=== PATIENT | female | born 1990 | race Caucasian/White ===

== ENCOUNTER 2017-09-08 13:25 | Emergency (ER) | payer MEDICAID, SELFPAY ==
[2017-09-08 14:13] VITALS: BP 135/69; PULSE 105; RESP 18; TEMP 36.4; O2SAT 96; BMI 27.4
[2017-09-08 14:18] LABS: UTC Influenza A Antigen Negative (Negative); UTC Influenza B Antigen Negative (Negative)
--- NOTE | 2017-09-08 14:58 | HMH.EDUTC ---
[facility] [place] Disposition Clinical Impression: Cough Disposition: Home, Self-Care Condition on Discharge: Good Additional Instructions: * Monitor Temp. Tylenol and/or Ibuprofen as needed. ER if fever is no less than 101 despite alternating Tylenol and Ibuprofen * Encourage fluids, water, Gatorade, powerade, pedialyte if /toddler/or child * Warm salt water gargles for throat irritation *Warm fluids *Sore throat lozenges *Sleep elevated *humidifier or vaporizer Lots of rest Increase fluids, water, Gatorade, powerade *Bromfed may cause drowsiness. Know how it effect you or your child. Before driving, caring for small children or sending your child to school *Your throat swab was sent to lab for culture. Those results area typically sent to your primary care physician. Be sure to follow up in 2-3 days if no improvement so they can review those results and treat if necessary If you dont have primary care I recommend you get one, but in the mean time you will have to return to a walk in clinic Follow up IMMEDIATELY for new or worsening of symptoms OR no noticeable improvement over the next 48-72 hours. 911 immediately for any life threatening symptoms such as chest pain or difficulty breathing Prescriptions: Brompheniramine/Pseudoephed/Dm [Bromfed DM Cough Syrup 5mL] 10 ml PO Q4H PRN #200 syrup PRN Reason: Cough Referrals: Provider,Referral, [Primary Care Provider] - Time of Disposition: 15:02 Medical Decision Making Vital Signs: 09/08/17 14:13 Temperature 97.6 F Temperature Source Temporal Artery Scan Pulse Rate [Right] 105 H Respiratory Rate 18 Blood Pressure [Right Arm] 135/69 Blood Pressure Mean [Right Arm] 91 Blood Pressure Source [Right Arm] Automatic Cuff Blood Pressure Position [Right Arm] Sitting 02 Sat by Pulse Oximetry 96 Oxygen Delivery Method Room Air - Lab Data Lab Results 09/08/17 14:13: Influenza Type A Ag Negative, Influenza Type B Ag Negative - Lamont Inquiry Pt receiving controlled substance: No Lamont was queried for this patient: No [facility] [place] HPI - General Stated complaint: cough Mode of Arrival: Ambulatory Source of Information: Patient Limitations: No Limitations Description of Symptoms (Recalled from Triage Doc. by RN): COUGH, CONGESTION, DIARRHEA HEENT Symptoms (Recalled from RN notes): Yes Resp Symptoms (Recalled from RN notes): No Skin Symptoms (Recalled from RN notes): No MS Symptoms (Recalled from RN notes): No Functional Status (Recalled from RN notes): N - History of Present Illness Provider Complaint: State that she was recently exposed to someone with the flu and she was worried that she may have caught it State that she has a small baby at home and wanted to make sure she was ok - Related Data Previous Rx's Medication Instructions Recorded Brompheniramine/Pseudoephed/Dm 10 ml PO Q4H PRN #200 syrup 09/08/17 [Bromfed DM Cough Syrup 5mL] Allergies Allergy/AdvReac Type Severity Reaction Status Date / Time No Known Drug Allergies Allergy Unknown Verified 09/08/17 14:17 - Worker's Comp Is this a Worker's Comp case?: No [facility] History I have reviewed the patient's past medical history: Yes - *Social History Smoking Status: Current every day smoker Tobacco Type: cigarettes Alcohol Intake: never - Psychiatric History Expresses thoughts of harming self/others: None Suicide Plan Description: No Plan ROS Obtained: Yes All systems reviewed & no additional complaints Physical Exam - General General appearance: alert, in no apparent distress - ENT ENT exam: Present: normal exam, normal oropharynx, mucous membranes moist, TM's normal bilaterally, normal external ear exam - Respiratory Respiratory exam: Present: normal lung sounds bilaterally. Absent: respiratory distress - Cardiovascular Cardiovascular exam: Present: regular rate, normal rhythm. Absent: JVD - Neurological Exam Neurological exam: Present: alert, oriented X3
--- NOTE | 2017-09-08 15:02 | ED_ITS ---
[facility] [place] Clinical Impression: Cough Disposition: Home, Self-Care Condition on Discharge: Good Additional Instructions: * Monitor Temp. Tylenol and/or Ibuprofen as needed. ER if fever is no less than 101 despite alternating Tylenol and Ibuprofen * Encourage fluids, water, Gatorade, powerade, pedialyte if /toddler/or child * Warm salt water gargles for throat irritation *Warm fluids *Sore throat lozenges *Sleep elevated *humidifier or vaporizer Lots of rest Increase fluids, water, Gatorade, powerade *Bromfed may cause drowsiness. Know how it effect you or your child. Before driving, caring for small children or sending your child to school *Your throat swab was sent to lab for culture. Those results area typically sent to your primary care physician. Be sure to follow up in 2-3 days if no improvement so they can review those results and treat if necessary If you don? t have primary care I recommend you get one, but in the mean time you will have to return to a walk in clinic Follow up IMMEDIATELY for new or worsening of symptoms OR no noticeable improvement over the next 48-72 hours. 911 immediately for any life threatening symptoms such as chest pain or difficulty breathing Prescriptions: Brompheniramine/Pseudoephed/Dm [Bromfed DM Cough Syrup 5mL] 10 ml PO Q4H PRN # 200 syrup PRN Reason: Cough Referrals: Provider,Referral, [Primary Care Provider] - Time of Disposition: 15:02 Medical Decision Making Vital Signs: 09/08/17 14:13 Temperature 97.6 F Temperature Source Temporal Artery Scan Pulse Rate [Right] 105 H Respiratory Rate 18 Blood Pressure [Right Arm] 135/69 Blood Pressure Mean [Right Arm] 91 Blood Pressure Source [Right Arm] Automatic Cuff Blood Pressure Position [Right Arm] Sitting 02 Sat by Pulse Oximetry 96 Oxygen Delivery Method Room Air - Lab Data Lab Results 09/08/17 14:13: Influenza Type A Ag Negative, Influenza Type B Ag Negative - Lamont Inquiry Pt receiving controlled substance: No Lamont was queried for this patient: No [facility] [place] - General Stated complaint: cough Mode of Arrival: Ambulatory Source of Information: Patient Limitations: No Limitations Description of Symptoms (Recalled from Triage Doc. by RN): COUGH, CONGESTION, DIARRHEA HEENT Symptoms (Recalled from RN notes): Yes Resp Symptoms (Recalled from RN notes): No Skin Symptoms (Recalled from RN notes): No MS Symptoms (Recalled from RN notes): No Functional Status (Recalled from RN notes): N - History of Present Illness Provider Complaint: State that she was recently exposed to someone with the flu and she was worried that she may have caught it State that she has a small baby at home and wanted to make sure she was ok - Related Data Previous Rx's Medication Instructions Recorded Brompheniramine/Pseudoephed/Dm 10 ml PO Q4H PRN #200 syrup 09/08/17 [Bromfed DM Cough Syrup 5mL] Allergies Allergy/AdvReac Type Severity Reaction Status Date / Time No Known Drug Allergies Allergy Unknown Verified 09/08/17 14:17 - Worker's Comp Is this a Worker's Comp case?: No [facility] History I have reviewed the patient's past medical history: Yes - *Social History Smoking Status: Current every day smoker Tobacco Type: cigarettes Alcohol Intake: never - Psychiatric History Expresses thoughts of harming s
== END 2017-09-08 15:03 | disposition home or self-care (01) ==
PROVIDERS: Emergency Provider Nurse Practitioner; Family Provider Emergency Medicine
DX: R05 Cough (principal); Z20.828 Contact with and (suspected) exposure to other viral communicable diseases
CPT/HCPCS: 87804; 99201

== ENCOUNTER → 2017-10-12 11:37 | Outpatient (REF) | payer MEDICAID, SELFPAY ==
[2017-10-12 13:38] LABS: Basophils % 0.3 % (0.1-2.0); Eosinophils # 0.1 K/mm3 (0.0-0.4); Eosinophils % 0.9 % (0.1-12.0); Hematocrit 39.9 % (37.0-47.0); Lymphocytes # 1.2 K/mm3 (0.7-4.5); Lymphocytes % 9.2 K/mm3 (10-50); Mean Corpuscular HGB Conc 32.6 g/dL (31.8-35.4); Mean Corpuscular Volume 88.7 fl (81-99); Monocytes # 0.6 K/mm3 (0.1-1.0); Monocytes % 4.5 % (1.7-9.3); Neutrophils # 11.4 K/mm3 (1.8-7.8); Neutrophils % 85.2 % (37.0-80.0); Platelet Count 281 K/mm3 (142-424); Red Cell Distribution Width 13.5 % (11.5-17.5); White Blood Count 13.4 K/mm3 (4.8-10.8)
[2017-10-12 13:44] LABS: MANUAL DIFFERENTIAL MANUAL DIFFERENTIAL (MANUAL DIFF)
[2017-10-12 14:06] LABS: Alanine Aminotransferase 17 U/L (12-78); Albumin Level 3.2 gm/dL (3.4-5.0); Albumin/Globulin Ratio 0.8 (1.1-1.8); Alkaline Phosphatase 54 U/L (46-116); Anion Gap 11.9 mEq/L (5-15); Aspartate Amino Transferase 6 U/L (15-37); Bilirubin,Total 0.5 mg/dL (0.2-1.0); Blood Urea Nitrogen 9 mg/dL (7-18); Calcium 9.1 mg/dL (8.5-10.1); Carbon Dioxide 27 mmol/L (21.0-32.0); Chloride 101 mmol/L (98-107); Creatinine,Serum 0.94 mg/dL (0.55-1.02); Estimated Glomerular Filt Rate 71 ml/min (>60); GFR (African American) 86 ML/MIN (>60); Globulin 4.1 gm/dl (1.3-3.2); Glucose 107 mg/dL (74-106); Potassium 3.9 mmoL/L (3.5-5.1); Sodium 136 mmol/L (136-145); Total Protein,Serum 7.3 gm/dL (6.4-8.2)
[2017-10-12 14:51] LABS: Hemoglobin A1C 5.2 % (0.0-7.0)
[2017-10-12 15:16] LABS: Lymphocytes % 12 % (10-50); Monocytes % 6 % (2-9); Neutrophils % 82 % (42-76); Total Cells Counted 100
[2017-10-12 15:17] LABS: Platelet Estimate Normal; RBC Morphology Normal
== END ==
LOC: LAB 11:37
PROVIDERS: Visit Provider Nurse Practitioner Family
DX: R39.198 Other difficulties with micturition (principal); R53.83 Other fatigue
CPT/HCPCS: 80053; 83036; 85007; 85025; 87086; 87088; 87186

== ENCOUNTER → 2018-08-03 13:35 | Outpatient (CLI) | payer MEDICAID, SELFPAY | PROVIDERS: Visit Provider Nurse Practitioner Family | DX: N28.9 Disorder of kidney and ureter, unspecified (principal) | CPT/HCPCS: 87086; 87088; 87186 ==

== ENCOUNTER → 2018-08-05 13:43 | Outpatient (CLI) | payer MEDICAID, SELFPAY ==
--- NOTE | 2018-08-05 13:46 | US_ITS ---
US kidney retroperitoneal comp HISTORY: Left flank pain ITS.REASON: Kidney pain ORDERING PHYSICIAN: Timothy Leroy PATIENT AGE: 27 years Comparison: None FINDINGS: RIGHT KIDNEY:Unremarkable. Normal size and echogenicity. No hydronephrosis Right kidney is 11 x 4 x 7 cm LEFT KIDNEY:Unremarkable. No hydronephrosis. Normal size and echogenicity. Left kidney is 10 x 4 x 5 cm OTHER FINDINGS: No other pertinent findings IMPRESSION: Negative bilateral renal ultrasound
== END ==
PROVIDERS: PCP Emergency Medicine; Visit Provider Nurse Practitioner Family
DX: N23 Unspecified renal colic (principal)
CPT/HCPCS: 76770

== ENCOUNTER → 2018-09-24 12:40 | Outpatient (CLI) | payer MEDICAID, SELFPAY ==
[2018-09-24 13:02] LABS: Basophils % 0.4 % (0.1-2.0); Eosinophils # 0.2 K/mm3 (0.0-0.4); Eosinophils % 1.8 % (0.1-12.0); Hematocrit 45.5 % (37.0-47.0); Hemoglobin 14.8 g/dL (12.2-16.2); Lymphocytes # 2.2 K/mm3 (0.7-4.5); Lymphocytes % 24.4 % (10-50); Mean Corpuscular HGB Conc 32.4 g/dL (31.8-35.4); Mean Corpuscular Hemoglobin 30.5 pg (27.0-31.2); Mean Corpuscular Volume 94.1 fl (81-99); Mean Platelet Volume 7.4 fl (7.4-10.4); Monocytes # 0.3 K/mm3 (0.1-1.0); Monocytes % 2.8 % (1.7-9.3); Neutrophils # 6.4 K/mm3 (1.8-7.8); Neutrophils % 70.5 % (37.0-80.0); Platelet Count 320 K/mm3 (142-424); Red Blood Count 4.84 M/mm3 (4.20-5.40); Red Cell Distribution Width 12.9 % (11.5-17.5); White Blood Count 9.1 K/mm3 (4.8-10.8)
[2018-09-25 08:22] LABS: Rapid Plasma Reagin Ab Titer Non Reactive (NonRea<1:1)
[2018-09-26 17:17] LABS: HIV Screen 4th Generation wRfx Non Reactive (Non Reactive); Hepatitis B Surface Antigen Negative (Negative); Hepatitis C Antibody <0.1 s/co ratio (0.0-0.9); Rubella Antibodies, IgG 2.26 index (Immune >0.99)
== END ==
PROVIDERS: PCP Emergency Medicine; Visit Provider Nurse Practitioner Obstetrics & Gynecology
DX: Z34.90 Encounter for supervision of normal pregnancy, unspecified, unspecified trimester (principal)
CPT/HCPCS: 36415; 85025; 86592; 86703; 86762; 86850; 87340; 87380; G0432

== ENCOUNTER → 2018-09-28 14:12 | Outpatient (CLI) | payer MEDICAID, SELFPAY ==
--- NOTE | 2018-09-28 14:13 | US_ITS ---
US OB transvaginal HISTORY: ITS.REASON: US OB Dates ORDERING PHYSICIAN: Elkin Chance MD PATIENT AGE: 27 years COMPARISON: None FINDINGS: Transvaginal images are performed. The uterus measures 9 x 5 x 6 cm No intrauterine gestational sac is apparent. Endometrium measures approximately 12 mm. The left ovary is 3.3 x 2 cm. The right ovary is 2.7 x 1.8 cm and contains small follicles with a small cyst measuring up to 14 x 8 mm. There is a small amount fluid in the cul-de-sac. IMPRESSION: 1. No intrauterine gestational sac apparent. Suggest correlation with quantitative beta hCG and follow up ultrasound if beta hCG is positive. 2. Small amount fluid in the cul-de-sac.
[2018-09-28 19:11] LABS: HCG,Quantitative 147 mIU/mL
== END ==
PROVIDERS: PCP Emergency Medicine; Visit Provider Nurse Practitioner Obstetrics & Gynecology
DX: O26.841 Uterine size-date discrepancy, first trimester (principal); Z34.90 Encounter for supervision of normal pregnancy, unspecified, unspecified trimester
CPT/HCPCS: 36415; 76817; 84702

== ENCOUNTER → 2018-09-30 07:28 | Outpatient (CLI) | payer MEDICAID, SELFPAY ==
[2018-09-30 09:04] LABS: HCG,Quantitative 360 mIU/mL
== END ==
PROVIDERS: Visit Provider Nurse Practitioner Obstetrics & Gynecology
DX: Z34.90 Encounter for supervision of normal pregnancy, unspecified, unspecified trimester (principal)
CPT/HCPCS: 36415; 84702

== ENCOUNTER → 2018-10-15 14:46 | Outpatient (CLI) | payer MEDICAID, SELFPAY ==
[2018-10-21 09:45] LABS: Buprenorphine, Urine Positive (Cutoff=10)
== END ==
PROVIDERS: Visit Provider Nurse Practitioner Obstetrics & Gynecology
DX: Z34.90 Encounter for supervision of normal pregnancy, unspecified, unspecified trimester (principal); N39.0 Urinary tract infection, site not specified
CPT/HCPCS: 80307; 87086; 87088; 87186

== ENCOUNTER → 2019-01-25 12:51 | Outpatient (CLI) | payer MEDICAID, SELFPAY ==
--- NOTE | 2019-01-25 13:21 | US_ITS ---
US OB /maternal detail: INDICATION: ITS.REASON: US OB Complete ORDERING PHYSICIAN: Elkin Chance MD PATIENT AGE: 28 years TECHNIQUE: ultrasound transabdominal scanning. COMPARISON: No previous relevant studies. FINDINGS: Single viable intrauterine gestation. Cephalic presentation. Placenta: Posterior High, GR 1. There is average amount fluid. The cervix appears satisfactory. Closed and measuring 4 cm in length. Complete survey performed and was unremarkable on the submitted images as in PACS. No discrete anomalies identified on survey imaging by technologist. Active fetus. Three-vessel cord with satisfactory umbilical cord insertion. 4- chamber heart noted. Survey of brain & ventricles unremarkable. Face and neck survey unremarkable. Diaphragm and chest views unremarkable. Abdomen: Both kidneys noted and unremarkable. Stomach noted and satisfactory. Spine: Survey of the spine satisfactory with no anomalies identified nor imaged. Both arms and legs noted. Amniotic Fluid: Adequate. Maternal adnexa: No significant findings. Measurements: Average ultrasound age 21w4d Gestational Age 20w5d Estimated due date by ultrasound age 1006/03/3029 Estimated weight 440Grams. BPD = 21w3d OFD = 22w0d HC = 21w0d AC = 22w0d FL = 21w4d Growth Percentile= 90 Heart Rate = 158 Cerebellum = 21w4d Humerus = 21w1d HC/AC is 1.09 (1.09-1.26) CI is 76% (70-86%) FL/BPD is 72% FL/AC is 21% IMPRESSION: There is a single live fetus which is in cephalic presentation. Average ultrasound age is 21 weeks and 4 days. All parameters correlate. The fetus is active. No obvious anomalies evident. Please see above for detailed
== END ==
PROVIDERS: PCP Emergency Medicine; Visit Provider Nurse Practitioner Obstetrics & Gynecology
DX: Z36.0 Encounter for antenatal screening for chromosomal anomalies (principal)
CPT/HCPCS: 76811

== ENCOUNTER → 2019-03-28 07:40 | Outpatient (CLI) | payer MEDICAID, SELFPAY ==
[2019-03-28 08:13] LABS: Glucose,Fasting 87 mg/dL (60-105)
== END ==
PROVIDERS: Visit Provider Nurse Practitioner Obstetrics & Gynecology
DX: Z34.90 Encounter for supervision of normal pregnancy, unspecified, unspecified trimester (principal)
CPT/HCPCS: 36415; 82951

== ENCOUNTER → 2019-04-12 09:12 | Outpatient (CLI) | payer MEDICAID, SELFPAY ==
[2019-04-12 10:18] LABS: Glucose,Fasting 79 mg/dL (60-105)
[2019-04-12 11:03] LABS: Glucose 1 Hour 128 mg/dL (74-106)
== END ==
PROVIDERS: Visit Provider Nurse Practitioner Obstetrics & Gynecology
DX: Z34.90 Encounter for supervision of normal pregnancy, unspecified, unspecified trimester (principal)
CPT/HCPCS: 36415; 82951

== ENCOUNTER → 2019-05-11 16:53 | Outpatient (CLI) | payer MEDICAID, SELFPAY | PROVIDERS: Visit Provider Nurse Practitioner Obstetrics & Gynecology | DX: Z34.90 Encounter for supervision of normal pregnancy, unspecified, unspecified trimester (principal) | CPT/HCPCS: 86403 ==

== ENCOUNTER 2019-05-29 15:18 | Outpatient (CLI) | payer MEDICAID, SELFPAY ==
[2019-05-29 15:31] VITALS: BMI 30.2
[2019-05-29 15:39] LABS: Microscopic, Urine URINE MICROSCOPIC (MICROSCOPIC)
[2019-05-29 15:40] VITALS: BP 125/66; PULSE 119; RESP 20; TEMP 36.8; O2SAT 97; BMI 30.2
[2019-05-29 15:41] LABS: Appearance,Urine CLEAR (Clear); Bilirubin,Urine Negative (Negative); Blood, Urine Negative (Negative); Color,Urine YELLOW (Yellow); Glucose,Urine (UA) Negative (Negative); Ketones,Urine TRACE (Negative); Leukocyte Esterase,Urine Negative (Negative); Nitrate,Urine Negative (Negative); Protein,Urine TRACE (Negative); Urobilinogen,Urine 0.2 EU/dl (0.2)
[2019-05-29 15:49] LABS: Amphetamine/Metha Screen,Urine Negative ng/mL (<1000); Barbiturates Screen,Urine Negative ng/mL (<200); Benzodiazepines Screen,Urine Negative ng/mL (<200); Cannabinoid Screen,Urine Negative ng/mL (<50); Cocaine Screen,Urine Negative ng/mL (<300); Methadone Screen,Urine Negative ng/mL (<300); Opiate Screen,Urine Negative ng/mL (<300); Phencyclidine Screen,Urine Negative ng/mL (<25)
[2019-05-29 16:05] LABS: Bacteria,Urine Trace /lpf; Squamous Epithelial Cell,Urine Occasional #/hpf (0-5)
== END 2019-05-29 16:17 | disposition home or self-care (01) ==
LOC: OBOUT 15:19 → OB 15:20
PROVIDERS: PCP Emergency Medicine; Visit Provider Obstetrics & Gynecology
DX: O60.03 Preterm labor without delivery, third trimester (principal); Z3A.38 38 weeks gestation of pregnancy
CPT/HCPCS: 59025; 80305; 81001

== ENCOUNTER 2019-06-03 05:39 | Inpatient (IN) ==
[2019-06-03 06:14] LABS: Microscopic, Urine URINE MICROSCOPIC (MICROSCOPIC)
[2019-06-03 06:16] LABS: Basophils % 0.2 % (0.1-2.0); Eosinophils # 0.2 K/mm3 (0.0-0.4); Eosinophils % 1.3 % (0.1-12.0); Hematocrit 34.2 % (37.0-47.0); Hemoglobin 10.9 g/dL (12.2-16.2); Lymphocytes # 3.4 K/mm3 (0.7-4.5); Lymphocytes % 18.8 % (10-50); Mean Corpuscular HGB Conc 31.8 g/dL (31.8-35.4); Mean Corpuscular Volume 92.4 fl (81-99); Mean Platelet Volume 8.5 fl (7.4-10.4); Monocytes # 0.8 K/mm3 (0.1-1.0); Monocytes % 4.5 % (1.7-9.3); Neutrophils # 13.5 K/mm3 (1.8-7.8); Neutrophils % 75.1 % (37.0-80.0); Platelet Count 454 K/mm3 (142-424); Red Cell Distribution Width 13.6 % (11.5-17.5); White Blood Count 17.9 K/mm3 (4.8-10.8)
[2019-06-03 06:16] LABS: Appearance,Urine SL CLOUDY (Clear); Bilirubin,Urine Negative (Negative); Blood, Urine Negative (Negative); Color,Urine YELLOW (Yellow); Glucose,Urine (UA) Negative (Negative); Ketones,Urine Negative (Negative); Leukocyte Esterase,Urine Negative (Negative); Protein,Urine Negative (Negative); Specific Gravity, Urine 1.015 (1.005-1.030); Urobilinogen,Urine 0.2 EU/dl (0.2)
[2019-06-03 06:23] LABS: Anion Gap 15.9 mEq/L (5-15); Calcium 10.5 mg/dL (8.5-10.1)
[2019-06-03 06:24] LABS: Amorphous Sediment,Urine 1+ /lpf; Bacteria,Urine Trace /lpf; WBC,Urine Occasional #/hpf (0-3)
[2019-06-03 06:39] LABS: Amphetamine/Metha Screen,Urine Negative ng/mL (<1000); Barbiturates Screen,Urine Negative ng/mL (<200); Benzodiazepines Screen,Urine Negative ng/mL (<200); Cannabinoid Screen,Urine Negative ng/mL (<50); Cocaine Screen,Urine Negative ng/mL (<300); Methadone Screen,Urine Negative ng/mL (<300); Opiate Screen,Urine Negative ng/mL (<300); Phencyclidine Screen,Urine Negative ng/mL (<25)
--- NOTE | 2019-06-03 07:09 | Progress Note ---
[facility] Anesthesia Checklist - Structural Data Admitted From: Inpatient Planned Operative Procedure/s: c/section Consent for Planned Operative Procedure(s) Verified: Yes - Airway Assessment C-Spine Mobility Assessed: Yes TMJ Mobility Assessed: Yes Dentition: Good Dentition - Neurological Assessment Level of Consciousness: Awake, Alert, Appropriate - Anesthesia Plan Anesthesia Risk discussed: Yes Anesthesia Plan: Verified ASA Class: II Anesthesia Type: Spinal [facility] History I have reviewed the patient's past medical history: Yes Medical History: Denies:: Cancer, Diabetes Mellitus Type 1, Diabetes Mellitus Type 2, MRSA *Have you ever received a pneumonia vaccine?: No *Have you received a flu vaccine this season?: No Other Medical History: Reports: Other Anesthesia experience/problems:: none Laterality Cases: Other Surgeries: Yes: Appendectomy, Cholecystectomy, , Other Amputation: No Fractures: No - *Social History Smoking Status: Current every day smoker Tobacco Type: cigarettes # Packs/Day (cigarettes): 1 #Yrs smoked (if former smoker): 15 Alcohol Intake: never Alcohol Intake Frequency:: holidays/special occasions only Substance Use Type: marijuana, crack/cocaine, other *Occupational Status:: unemployed *Travel in the last 8 weeks: None Family Hx:: No significant family history Para: 4
[2019-06-03 07:14] LABS: Eosinophils % 1 % (0-3); Lymphocytes % 17 % (10-50); Monocytes % 4 % (2-9); Neutrophils % 78 % (42-76); Total Cells Counted 100
[2019-06-03 07:15] LABS: RBC Morphology Normal
--- NOTE | 2019-06-03 08:26 | Operative Note ---
Date of procedure: 06/03/19 Pre-op Diagnosis:: Term , previous section Post-op Diagnosis:: Term , previous section Procedure performed:: Repeat lower segment transverse section Surgeon:: Elkin Chance MD Manager Retention(s):: Katy Varghese Anesthesia: spinal Estimated blood loss (mL): 600 Clinical Note:: She is a 28-year-old 5 now para 5 who was 39+1 weeks gestational age. She has had 4 previous sections and as a result of that was offered repeat lower segment transverse section at term. The risks and benefits of surgery were discussed with the patient prior to surgery. Operative findings:: She delivered a liveborn female child at 7:49 AM on June 03, 2019. The baby had Apgars of 8 at 1 minute and 8 at 5 minutes. pH was 7.41. Ovaries and tubes appeared normal. Operative note:: She was taken to the operating room where spinal anesthesia was found be adequate. She was prepped and draped in normal sterile fashion in the supine position with a leftward tilt. A Vega catheter was in the bladder. A Pfannenstiel skin incision was made with knife then carried through to the underlying layer of fascia with cautery. The fascia was opened in the midline with cautery and extended laterally using Valdes scissors. Hood clamps were applied to the superior aspect of the fascial incision which was tented up and the underlying rectus muscles dissected off using cautery. The Hood clamps were then applied to the inferior aspect of the fascial incision which in a similar fashion was tented up and the underlying rectus muscles dissected off using cautery. The rectus muscles were then in the midline, the peritoneum identified, and entered sharply with Metzenbaum scissors. This incision was then extended superiorly and inferiorly with cautery. We had good visualization of the bladder inferiorly. The bladder peritoneum was then opened in the midline and extended laterally using Metzenbaum scissors. A bladder flap was created digitally. The Transverse incision was made through the uterine muscle to the amnion. This incision was then extended laterally using fingers traction. The amnion was entered sharply with knife. There was clear amniotic fluid. The infant's head was then delivered atraumatically. A loose nuchal cord was then reduced. This was followed by the anterior shoulder and the rest of the infant's body atraumatically. The oropharynx and nasopharynx were bulb suctioned. The infant was then handed off to Dr. Garcia who assigned Apgars of 9 at 1 minute and 9 at 5 minutes. We then obtained cord blood as well as cord pH. The pH was 7.35. Using gentle traction on the cord and countertraction on the fundus I was able to easily deliver the placenta intact. It had a normal three-vessel cord. The uterus was then cleared of clots and debris . Uterus was then exteriorized from the abdominal cavity. The uterine incision was then closed using running 0 Vicryl suture in a locked fashion. A second layer of the same suture was used to imbricate the first layer. The bladder peritoneum was then closed using running 2-0 Vicryl suture in a locked fashion. The gutters and cul-de-sac were then cleared of clots and debris . Once again hemostasis was assured. I elected to place a piece of Surgicel along the uterine incision. The uterus was returned to the abdominal cavity. The peritoneum was grasped with Catie clamps and closed using running 2-0 Vicryl suture. The rectus muscles were then reapproximated using running 0 Vicryl suture. The fascia was closed using running #1 Vicryl suture. The subcutaneous tissues were then irrigated with warm water followed by closure Kedar's fascia using running 2-0 Monocryl suture. The skin was closed with sadie. I then cleaned the skin with Hibiclens. Sterile dressings were applied. She tolerated the procedure well and was taken to the recovery room in excellent condition. All sponges minute and needle counts were correct. Estimate a blood loss was approximately 600 mL. Condition: stable Disposition: PACU Specimens:: None Complications:: None
--- NOTE | 2019-06-03 08:42 | Progress Note ---
[facility] Anesthesia Record Part II Discharge Time: 09:00 Destination: Obstetric PACU nurse assessment reviewed?: Yes Patient Condition:: Good Anesthesia Complications:: None Swallowing reflex intact?: Yes Cyanosis?: No
--- NOTE | 2019-06-03 08:42 | Progress Note ---
[facility] Anesthesia Record Part I Intake, IV Amount: 1,500 Estimated blood loss (mL): 600 Urine output (mL): 300 Blood Pressure: 136/76 SaO2: 95 Pulse Rate: 97 Respiratory Rate: 12 Temperature: 97.1 F Patient is:: Awake, Stable Stable to PACU at:: 08:30
[2019-06-04 06:03] LABS: Hematocrit 28.4 % (37.0-47.0); Hemoglobin 8.6 g/dL (12.2-16.2)
--- NOTE | 2019-06-04 11:14 | Progress Note ---
Internal Medicine - PN: Subj *Date: 06/04/19 *Time: 11:12 Interval history: She is doing well this morning. Her pain is improved. She is bottlefeeding. Her lochia is normal. Exam Vital signs and Labs for Last 24 Hours: Temp Pulse Resp BP Pulse Ox 97.6 F 78 17 107/67 L 99 06/04/19 07:57 06/04/19 07:57 06/04/19 07:57 06/04/19 07:57 06/04/19 07:57 Laboratory Results - last 24 hr 06/04/19 05:50: Hgb 8.6 L D, Hct 28.4 L I & O for Last 24 hours: Intake & Output 06/01/19 06/02/19 06/03/19 06/04/19 11:59 11:59 11:59 11:59 Intake Total 1500 / 1500 Output Total 1200 / 1200 Balance 1500 / 1500 -1200 / -1200 Weight 170 lb - Constitutional no acute distress Assessment and Plan (1) Previous section Current visit: Yes Status: Acute Category: Surgical Code(s): Z98.891 - History of uterine scar from previous surgery (2) Delivery by section of full-term Current visit: Yes Status: Acute Category: Medical Code(s): O82 - Encounter for delivery without indication - Assessment and plan all Dx Assessment and Plan for all problems:: She is doing well. We will plan to send her home in 48 hours.
--- NOTE | 2019-06-05 14:39 | Progress Note ---
Internal Medicine - PN: Subj *Date: 06/05/19 *Time: 14:38 Interval history: She is doing well. Will see her back again in the morning and then send her home. Her pain is reasonably well controlled. Exam Vital signs and Labs for Last 24 Hours: Temp Pulse Resp BP Pulse Ox 98.2 F 89 20 128/68 100 06/04/19 20:45 06/04/19 20:45 06/05/19 07:31 06/05/19 07:31 06/04/19 20:45 Laboratory Results - last 24 hr 06/03/19 07:59: Cord ABG pH 7.41 I & O for Last 24 hours: Intake & Output 06/03/19 06/04/19 06/05/19 06/06/19 11:59 11:59 11:59 11:59 Intake Total 1500 / 1500 Output Total 1200 / 1200 Balance 1500 / 1500 -1200 / -1200 Weight 170 lb - Constitutional no acute distress Assessment and Plan (1) Previous section Current visit: Yes Status: Acute Category: Surgical Code(s): Z98.891 - History of uterine scar from previous surgery (2) Delivery by section of full-term Current visit: Yes Status: Acute Category: Medical Code(s): O82 - Encounter for delivery without indication - Assessment and plan all Dx Assessment and Plan for all problems:: She is doing well this morning. She is bottlefeeding. We will plan to send her home tomorrow.
[2019-06-06 08:24] VITALS: BP 124/75
--- NOTE | 2019-06-06 09:47 | Discharge Summary ---
General - General Admission date:: 06/03/19 Discharge date: 06/06/19 HPI HPI: She is a 28-year-old 5 now para 5 who is 39 weeks gestational age. She has had 4 previous sections and as a result of that was offered repeat lower segment transverse section at term. Hospital Course Hospital Course: On June 03, 2019 she underwent a repeat lower segment transverse section and delivered a liveborn female child. The baby weighed 8 pounds 5 ounces and was 19-1/2 inches long. She had Apgars of 8 at 1 minute and 8 at 5 minutes. She has done well post operatively and has remained afebrile throughout her hospitalization. She is eating and drinking and ambulating. She is bottlefeeding. Her lochia is normal. She has a positive blood, she is rubella immune and was group B strep to coccus negative. She is discharged home to follow-up with me in approximately 2 weeks time. She will continue with her vitamins and iron. She was given a prescription for Percocet/5/325, number 30 tablets. Rhogam Administration: Not Indicated Objective Vital signs: Temp Pulse Resp BP Pulse Ox 98.2 F 83 18 124/75 98 06/06/19 08:00 06/06/19 08:00 06/06/19 08:00 06/06/19 08:00 06/06/19 08:00 no acute distress Results Labs on day of discharge: Labs from last 24 hours 06/03/19 06/03/19 07:59 05:48 Cord ABG pH 7.41 Ur Buprenorphine Scrn Negative DS: Diagnosis - Discharge Diagnosis (1) Previous section Status: Acute (2) Delivery by section of full-term infant Status: Acute Discharge Plan - Patient Discharge Instructions ACTIVITY: No heavy lifting DIET: continue same diet - Follow up Plan Disposition: Home, Self-[facility] Medications: Home Medications Medication Instructions Recorded Confirmed Type folic acid 400 mcg tablet 0.4 mg PO DAILY 10/15/18 06/03/19 History multivitamin capsule 1 cap PO DAILY 10/15/18 06/03/19 History Ferrous Sulfate 325 mg PO DAILY 06/03/19 06/03/19 History Hydrocortisone 1 applic TOPICAL TIDP PRN 06/03/19 06/03/19 History Lisinopril [Lisinopril 10mg Tab] 10 mg PO DAILY 06/03/19 06/03/19 History Polyethylene Glycol 3350 17 g PO DAILY 06/03/19 06/03/19 History Triamcinolone Acetonide 1 applic TOPICAL BID 06/03/19 06/03/19 History buPROPion HCl [Wellbutrin 75mg 75 mg PO BID 06/03/19 06/03/19 History Tablet] Ibuprofen [Motrin 400mg 400 mg PO Q4HP PRN #40 tab 06/06/19 Rx tablet] Oxycodone HCl/Acetaminophen 1 - 2 tab PO Q4-6H PRN #30 tab 06/06/19 Rx [Percocet 5/325mg tablet] Prescriptions/Medication Reconciliation: New Oxycodone HCl/Acetaminophen [Percocet 5/325mg tablet] 1 - 2 tab PO Q4-6H PRN #30 tab PRN Reason: Severe Pain Ibuprofen [Motrin 400mg tablet] 400 mg PO Q4HP PRN #40 tab PRN Reason: Moderate Pain Continued multivitamin capsule 1 cap PO DAILY folic acid 400 mcg tablet 0.4 mg PO DAILY Ferrous Sulfate 325 mg PO DAILY Triamcinolone Acetonide 1 applic TOPICAL BID buPROPion HCl [Wellbutrin 75mg Tablet] 75 mg PO BID Polyethylene Glycol 3350 17 g PO DAILY Hydrocortisone 1 applic TOPICAL TIDP PRN PRN Reason: Rash Discontinued Lisinopril [Lisinopril 10mg Tab] 10 mg PO DAILY - Problem Reconciliation Problems Reviewed?: Yes
--- OUTSIDE RECORDS SUMMARY | 2019-06-06 13:06 | External Medical Summary | Continuity of Care Document ---
:1990 Author Organization [facility] Address [address] [facility] [address] [employer] [place] [address] Phone Care Team Providers Name Role Phone Robson Attending Provider Mouna Marie Primary Care Provider Alin Attending Provider Allergies, Adverse Reactions, Alerts Allergen Type Severity Reaction Last Updated Verified Status amitriptyline Allergy UNKNOWN June 03, 2019 Yes Active aspirin Allergy UNKNOWN June 03, 2019 Yes Ac tive morphine Allergy UNKNOWN June 03, 2019 Yes Ac tive pregabalin Allergy UNKNOWN June 03, 2019 Yes A ctive tetracycline Allergy UNKNOWN June 03, 2019 Yes Active Medications Medication Status Dose Units Route Sig Qty Days Start End Instruct ions Date Date Multivitamin Active 1 CAP Oral Daily October 15, 2018 11:15am Folic Acid Active 0.4 MG Oral Daily October 15, 2018 11:15am Ferrous Sulfate Active 325 MG Oral Daily June 03, 2019 6:24am Hydrocortisone Active 1 APPLIC Three October times a 2018 day as 6:24am needed Polyethylene Active 17 G Oral Daily May 6:24am Triamcinolone Active 1 APPLIC Twice a May apply to Acetonide day 2018 affect ed area 6:24am twice daily Bupropion Hcl Active 75 MG Oral Twice a October day 2018 9:09am Ibuprofen Active 400 MG Oral Every May hours 2018 as 9:48am needed Oxycodone Active 1 - 2 TAB Oral EVERY 29 June Hcl/Acetaminophe 4-6 2018 n HOURS 9:48am Problems Active Problems Medical Problem Onset Date Status Normal IUP (intrauterine ) on ultrasound Active Cough Active Delivery by section of full-term infant Active Active Previous section Active Hematochezia Active Procedures Procedure Date Performed Status Group B Streptococcus Screen (GRACIE) May 11, 2019 comp leted Relevant Diagnostic Tests and/or Laboratory Data Laboratory Results Test Date/Time Result Interpretation Reference Result Perfo rming Range Comment Site POC Urine March 22, Negative Marijuana (THC) 2018 2:41pm Urine Color March 22, Yellow 2018 3:01pm Urine Color March Barbara 2018 8:37am POC Urine Marlow Negative Marijuana (THC) 2018 8:38am Urine Color March Barbara 2018 10:13am POC Urine Marlow Negative Marijuana (THC) 2018 10:18am Urine Color May Yellow 2018 11:00am POC Urine Marta Negative Marijuana (THC) 2018 11:01am Urine Color May Yellow 2018 10:42am POC Urine Marta Negative Marijuana (THC) 2018 10:42am POC Urine Marta Negative Marijuana (THC) 2018 9:11am Urine Color May Yellow 2018 9:11am POC Urine Cocaine March 22, Negative 2018 2:41pm Urine Appearance March 222018 3:01pm Urine Appearance March Clear 2018 8:37am POC Urine Cocaine Marlow Negative 2018 8:38am Urine Appearance March Clear 2018 10:13am POC Urine Cocaine Marlow Negative 2018 10:18am Urine Appearance May Clear 2018 11:00am POC Urine Cocaine Marta Negative 2018 11:01am Urine Appearance May Clear 2018 10:42am POC Urine Cocaine Marta Negative 2018 10:42am POC Urine Cocaine Marta Negative 2018 9:11am Urine Appearance May Clear 2018 9:11am POC Urine March 22, Negative Morphine 2018 2:41pm Urine Glucose March 22, Negative (UA) 2018 3:01pm Urine Glucose March Negative (UA) 2018 8:37am POC Urine Marlow Negative Morphine 2018 8:38am Urine Glucose March Negative (UA) 2018 10:13am POC Urine Marlow Negative Morphine 2018 10:18am Urine Glucose Marta Negative (UA) 2018 11:00am POC Urine Marta Negative Morphine 2018 11:01am POC Urine Marta Negative Morphine 2018 10:42am Urine Glucose Marta Negative (UA) 2018 10:42am POC Urine Marta Negative Morphine 2018 9:11am Urine Glucose Marta Negative (UA) 2018 9:11am POC Urine March 22, Negative Amphetamine 2018 2:41pm Urine Bilirubin March 22, negative 2018 3:01pm Urine Bilirubin March negative 2018 8:37am POC Urine Marlow Negative Amphetamine 2018 8:38am Urine Bilirubin Marlow negative 2018 10:13am POC Urine Marlow Negative Amphetamine 2018 10:18am Urine Bilirubin Marta small 2018 11:00am POC Urine Marta Negative Amphetamine 2018 11:01am POC Urine Marta Negative Amphetamine 2018 10:42am Urine Bilirubin Marta negative 2018 10:42am POC Urine Marta Negative Amphetamine 2018 9:11am Urine Bilirubin Marta negative 2018 9:11am POC Urine March 22, Negative Methamphetamine 2018 2:41pm Urine Ketones March 22, Trace 2018 3:01pm mg/dL Urine Ketones March Negative 2018 mg/dL 8:37am POC Urine Marlow Positive Methamphetamine 2018 8:38am Urine Ketones March Negative 2018 mg/dL 10:13am POC Urine Marlow Negative Methamphetamine 2018 10:18am Urine Ketones Marta Trace 5 2018 mg/dL 11:00am POC Urine Marta Negative Methamphetamine 2018 11:01am POC Urine Marta Negative Methamphetamine 2018 10:42am Urine Ketones Marta Small 15 2018 mg/dL 10:42am POC Urine Marta Negative Methamphetamine 2018 9:11am Urine Ketones Marta Trace 5 2018 mg/dL 9:11am POC Urine March 22, Negative Barbiturates 2018 2:41pm Urine Protein March 22, 100++ 2019 3:01pm Urine Protein March Negative 2018 8:37am POC Urine Marlow Negative Barbiturates 2018 8:38am Urine Protein March Negative 2018 10:13am POC Urine Marlow Negative Barbiturates 2018 10:18am Urine Protein Marta 30+ 2018 11:00am POC Urine Marta Negative Barbiturates 2018 11:01am Urine Protein Marta 100++ 2018 10:42am POC Urine Marta Negative Barbiturates 2018 10:42am POC Urine Marta Negative Barbiturates 2018 9:11am Urine Protein Marta Negative 2018 9:11am POC Urine March 22, Negative Benzodiazepine 2018 2:41pm Urine pH March 22, 6.5 2018 3:01pm Urine pH Marlow 7.0 2018 8:37am POC Urine Marlow Negative Benzodiazepine 2018 8:38am Urine pH Marlow 7.5 2018 10:13am POC Urine Marlow Negative Benzodiazepine 2018 10:18am Urine pH Marta 7.0 2018 11:00am POC Urine Marta Negative Benzodiazepine 2018 11:01am POC Urine Marta Negative Benzodiazepine 2018 10:42am Urine pH Marta 6.0 2018 10:42am Urine pH Marta 7.5 2018 9:11am POC Urine Marta Negative Benzodiazepine 2018 9:11am POC Urine MDMA March 22, 2018 2:41pm Urine Blood March 22 large 2018 3:01pm Urine Blood Marlow negative 2018 8:37am POC Urine MDMA Marlow Negative 2018 8:38am Urine Blood Marlow negative 2018 10:13am POC Urine MDMA Marlow Negative 2018 10:18am Urine Blood Marta negative 2018 11:00am POC Urine MDMA Marta Negative 2018 11:01am POC Urine MDMA Marta Negative 2018 10:42am Urine Blood Marta negative 2018 10:42am POC Urine MDMA Marta Negative 2018 9:11am Urine Blood Marta negative 2018 9:11am POC Urine March 22, Negative Methadone 2018 2:41pm Urine Specific March 22, 1.025 Barton 2018 3:01pm Urine Specific Marlow 1.025 Barton 2018 8:37am POC Urine Marlow Negative Methadone 2018 8:38am Urine Specific Marlow 1.020 Barton 2018 10:13am POC Urine Marlow Negative Methadone 2018 10:18am Urine Specific Marta 1.025 Barton 2018 11:00am POC Urine Marta Negative Methadone 2018 11:01am Urine Specific Marta 1.025 Barton 2018 10:42am POC Urine Marta Negative Methadone 2018 10:42am POC Urine Marta Negative Methadone 2018 9:11am Urine Specific Marta 1.020 Barton 2018 9:11am POC Urine March 22, Negative Oxycodone 2018 2:41pm Urine March 22, 0.2 Urobilinogen 2018 3:01pm Dipstick Urine Marlow 0.2 Urobilinogen 2018 Dipstick 8:37am POC Urine Marlow Negative Oxycodone 2018 8:38am Urine Marlow 0.2 Urobilinogen 2018 Dipstick 10:13am POC Urine Marlow Negative Oxycodone 2018 10:18am Urine Marta 0.2 Urobilinogen 2018 Dipstick 11:00am POC Urine Marta Negative Oxycodone 2018 11:01am Urine Marta 0.2 Urobilinogen 2018 Dipstick 10:42am POC Urine Marta Negative Oxycodone 2018 10:42am Urine Marta 0.2 Urobilinogen 2018 Dipstick 9:11am POC Urine Marta Negative Oxycodone 2018 9:11am POC Urine March 22, Negative Phencyclidine 2018 2:41pm Urine Nitrate March 22, Negative 2018 3:01pm Urine Nitrate March Negative 2018 8:37am POC Urine Marlow Negative Phencyclidine 2018 8:38am Urine Nitrate March Negative 2018 10:13am POC Urine Marlow Negative Phencyclidine 2018 10:18am Urine Nitrate Marta Negative 2018 11:00am POC Urine Marta Negative Phencyclidine 2018 11:01am POC Urine Marta Negative Phencyclidine 2018 10:42am Urine Nitrate Marta Negative 2018 10:42am POC Urine Marta Negative Phencyclidine 2018 9:11am Urine Nitrate Marta Negative 2018 9:11am POC Urine March 22, Negative Buprenorphine 2018 2:41pm Urine Leukocyte March 22, Trace Esterase 2018 3:01pm Urine Leukocyte March Negative Esterase 2018 8:37am POC Urine Marlow Negative Buprenorphine 2018 8:38am Urine Leukocyte March Negative Esterase 2018 10:13am POC Urine March Negative Buprenorphine 2018 10:18am Urine Leukocyte May Negative Esterase 2018 11:00am POC Urine Marta Negative Buprenorphine 2018 11:01am Urine Leukocyte Marta Negative Esterase 2018 10:42am POC Urine Marta Negative Buprenorphine 2018 10:42am Urine Leukocyte Marta Negative Esterase 2018 9:11am POC Urine Marta Negative Buprenorphine 2018 9:11am Fasting Glucose March 28, 87 mg/dL 60-105 [facility], [address] [place] [address] 36 E 2018 7:41am [place] [address] Fasting Glucose March 79 mg/dL 60-105 [facility], [address] [place] [address] E 2018 9:14am [place] [address] Glucose 1 Hour March 28, TNP Test not [place] [address] E 2018 7:41am [place] [address] Glucose 1 Hour March 128 mg/dL 74-106 [facility], [address] [place] [address] E 2018 9:14am [place] [address] Urine Fasting March 28, Negative [facility], [address] [place] [address] E Glucose 2018 7:41am mg/[place] [address] Urine Fasting March Negative [facility], [address] [place] [address] E Glucose 2018 mg/dL 9:14am [place] [address] Urine Glucose 1 March 28, TNP Test not [facility], [address] [place] [address] E Hour 2018 7:41am [place] [address] Urine Glucose 31 March Negative [facility], [address] [place] [address] E Hour 2018 mg/dL 9:14am [place] [address] Microbiology Results Procedure Source Result Collection Result Result Performin g Date/Time Date/Time Comment Site Group B Vaginal Negative for May [facility], [address] [place] [address] E Streptococcus Group B 2018 Screen (GRACIE) Streptococcu 10:31am 9:10[place] [address] s. Advance Directives Advance Directive Response Recorded Date/Time Does the patient have an advanced directive on No May 30, 2019 11:41am file? Living Will No May 30, 2019 11:41am Does the patient have an advanced directive on No May 24, 2019 9:09am file? Living Will No May 24, 2019 9:09am Does the patient have an advanced directive on No April 26, 2019 10:31am file? Living Will No April 26, 2019 10 :31am Does the patient have an advanced directive on No April 12, 2019 9:04am file? Living Will No April 12, 2019 9: 04am Chief Complaint and Reason for Visit Chief Complaint LAB WORK LAB WORK LABWORK Ultrasound OB NST Due date 05/1019 Contrac tions OR Reason for Visit Delivery by section of full-term Previous section Encounters Encounter Location(s) Arrival/Admit Date Discharge/Depart Date Provider(s) Departed [facility] Physician March 22, 2019 March 22, 2019 Elkin condon , [facility] 2:20pm 3:26pm [facility] Visit Registered [facility] Physician March 28, 2019 Elkin hardwick , Clinical Group-Laboratory 7:40am Departed [facility] Physician April 12, 2019 April 12, 2019 Sridhar Chance [facility] 8:13am 8:54am [facility] Visit Registered [facility] Physician April 12, 2019 Elkin thornton [facility] 9:12am Departed [facility] Phys[facility] April 26, 2019 April 26, 2019 Sridhar Chance [facility] 9:39am 10:15am [facility] Visit Departed [facility] Phys[facility] May 11, May 11, 2019 Vigil Physician[facility] 2018 9:58am 11:00am [facility] Visit Registered [facility] Physician May 11, Elkin hardwick [facility] Drop 2018 4:53pm MD Off to [facility] Departed [facility] Physician May 18, May 18, 2019 L[facility]na dakotah Chance [facility] 2018 10:14am 11:27am [facility] Visit Departed [facility] Phys[facility] May 24, May 24, 2019 Lorena dakotah Chance [facility] 2018 8:38am 9:17am [facility] Visit Registered [facility] Physician May 29, May 29, 2019 Siri Ogden , [facility]patient [facility] 2018 3:18pm 4:17pm MD Sigrid Chance Departed [facility] Phys[facility] May 30, May 30, 2019 Vigil , [facility] 2018 10:44am 11:51am [facility] Visit Registered [facility] Physician June 03, 2019 Elkin thornton , [facility] 5:39am MD Sigrid Chance Recent Diagnosis Onset Date Delivery by section of full-term infant Previous section Assessments Diagnosis Onset Date Resolution Status Delivery by section of full-term infant acute Previous section acute Functional Status Observation Response Date Recorded Functional status ambulatory May 30, 2019 11:41am Functional status ambulatory May 24, 2019 10:35am Functional status ambulatory May 11, 2019 11:01am Functional status ambulatory May 24, 2019 9:09am Functional status ambulatory April 26, 2019 10 :31am Functional status ambulatory April 12, 2019 9: 04am Functional status ambulatory March 22, 2019 3:40 pm Goals Acute Goals Nursing Diagnosis: Knowledge Deficit D isease/Condition Goal(s): Education of di sease process Instruction(s): Follow provider p catrina/instructions (See attached discharge education) Follow/up with primary care provider as instructed in discharge packet Nursing Diagnosis: Knowledge Deficit D isease/Condition Goal(s): Education of di sease process Instruction(s): Follow provider p catrina/instructions (See attached discharge education) Follow/up with primary care provider as instructed in discharge packet Mental Status No Mental Status Information Available Medical Equipment No Medical Equipment Information available Insurance Providers Guarantor Megan De León Address [address] [place] [address] Contact Info. Home Phone: Payer Policy Id Coverage Id Subscriber's Subscriber Id Effective E xpiration Name Date Date [employer] [id number] Megan De León [id number] [facility] [id number] Megan De León [id number] Health Plan Self Pay Self N/A Plan of Treatment She continues to do very well. she is scheduled for a section later this week. Today we did an ultrasound and there was good growth and biopsy profile is 8 out of 8. The fluid is normal. Fetus is in the cephalic presentation. SD ratio is normal. We did group B strep today. We also had her sign her consents for her June 03, 2019. We we will make arrangements for her to have an ultrasound next week since she measures up smaller than her dates. She continues to do well. Her cervix remains unchanged. We will see her back again early next week. She has a scheduled for Thursday of next week. She is doing very well. We will see her back again in 2 weeks. We have scheduled her for a for June 03, 2019. She was positive for methamphetamine today. We will see her back again in 2 weeks time. She continues to do well. We will see her back again in 2 weeks. Future Tests Future scheduled test information is unavailable Pending Tests Pending diagnostic test information is unavailable Future Visits Future appointment information is unavailable Referrals to Other Providers Reason for Referral Start Provider Provider Contact Provider Address Referral Date Information [facility]mission to [facility] June [address] Future Procedures Future procedure information is unavailable Future Medications Future medication information is unavailable Patient Instructions How to Breastfeed Your Baby Diet Diet How to Do Kick Counts Antepartum Care Diet How to Care for a Surgical Wound Depression Hemorrhage [facility] Post Discharge Instructions Social History Assigned Sex Female Vital Signs Vital Reading Result Reference Range Collection Date/ Time Height 160.02 cm March 22, 2019 2:52pm Weight 69.85 kg March 22, 2019 2:52pm BP Systolic 114 mm[Hg] 110-140 March 22, 2019 2:52pm BP Diastolic 60 mm[Hg] 60-90 March 22, 2019 2:52pm BMI (Body Mass Index) 27.3 kg/m2 March 22, 2019 2:52pm Height 160.02 cm April 12 8:21am Weight 69.85 kg April 12 8:21am BP Systolic 108 mm[Hg] 110-140 April 12 9 8:21am BP Diastolic 64 mm[Hg] 60-90 April 12 8:21am BMI (Body Mass Index) 27.3 kg/m2 March 8:21am Height 160.02 cm April 26 9:46am Weight 73.93 kg April 26 9 9:46am BP Systolic 120 mm[Hg] 110-140 April 26 9 9:46am BP Diastolic 70 mm[Hg] 60-90 April 26 9 9:46am BMI (Body Mass Index) 28.8 kg/m2 March 9:46am Height 160.02 cm May 11, 2019 10:44am Weight 75.01 kg May 11, 2019 10:44am BP Systolic 122 mm[Hg] 110-140 May 11, 2019 10:44am BP Diastolic 72 mm[Hg] 60-90 May 11, 2019 10:44am BMI (Body Mass Index) 29.2 kg/m2 May 11, 2019 10:44am Height 160.02 cm May 18, 2019 11:06am Weight 74.38 kg May 18, 2019 11:06am BP Systolic 120 mm[Hg] 110-140 May 18, 2019 11:06am BP Diastolic 60 mm[Hg] 60-90 May 18, 2019 11:06am BMI (Body Mass Index) 29.0 kg/m2 May 18, 2019 11:06am Height 160.02 cm May 24, 2019 8:47am Weight 75.74 kg May 24, 2019 8:47am BP Systolic 120 mm[Hg] 110-140 May 24, 2019 8:47am BP Diastolic 98 mm[Hg] 60-90 May 24, 2019 8:47am BMI (Body Mass Index) 29.5 kg/m2 May 24, 2019 8:47am Height 160.02 cm May 29, 2019 3:40pm Weight 77.56 kg May 29, 2019 3:40pm Body Temperature 98.2 [degF] 97.6-99.6 May 29, 2019 3:40pm Heart Rate 119 /min -May 29, 2019 3:40pm Respiratory rate 20 /min -May 29, 2019 3:40pm Oxygen saturation by Pulse 97 % 95-100 [facility] 2018 3:40pm oximetry BP Systolic 125 mm[Hg] 110-140 May 29, 2019 3:40pm BP Diastolic 66 mm[Hg] 60-90 May 29, 2019 3:40pm BMI (Body Mass Index) 30.2 kg/m2 May 29, 2019 3:40pm Height 160.02 cm May 30, 2019 11:16am Weight 76.37 kg May 30, 2019 11:16am BP Systolic 118 mm[Hg] 110-140 May 30, 2019 11:16am BP Diastolic 70 mm[Hg] 60-90 May 30, 2019 11:16am BMI (Body Mass Index) 29.8 kg/m2 May 30, 2019 11:16am Height 160.02 cm June 03 9:04am Weight 77.11 kg June 03 9 9:04am Body Temperature 98.2 [degF] 97.6-99.6 June 06 8:00am Heart Rate 83 /min -June 06 9 8:00am Respiratory rate 18 /min -June 06 8:00am Oxygen saturation by Pulse 98 % 95-100 2018 8:00am oximetry BP Systolic 124 mm[Hg] 110-140 June 06 201 9 8:00am BP Diastolic 75 mm[Hg] 60-90 June 06 9 8:00am BMI (Body Mass Index) 30.1 kg/m2 May 9:04am
== END 2019-06-06 10:10 | disposition home or self-care (01) | DRG 788 ==
LOC: OB 05:39
PROVIDERS: ADMIT Nurse Practitioner Obstetrics & Gynecology; ATTEND Nurse Practitioner Obstetrics & Gynecology
CPT/HCPCS: J2405

== ENCOUNTER 2019-12-26 17:02 | Emergency (ER) | payer BC, SELFPAY ==
[2019-12-26 17:09] VITALS: BP 123/71; PULSE 82; RESP 20; TEMP 37.2; O2SAT 100; BMI 25.7
[2019-12-26 18:03] VITALS: BP 123/71; PULSE 82; RESP 20; TEMP 37.2; O2SAT 100; BMI 25.7
--- NOTE | 2019-12-26 18:25 | HMH.EDUTC ---
[facility] [place] Clinical Impression: Finger laceration Qualifiers: Encounter type: initial encounter Finger: ring finger Damage to nail status: without damage Foreign body presence: without foreign body Laterality: left Qualified Code(s): S61.215A - Laceration without foreign body of left ring finger without damage to nail, initial encounter Disposition: Home, Self-Care Condition on Discharge: Good Instructions: Laceration Repair, DI for Laceration Repair -- Simple, DI for Laceration Repair -- Finger, How to Care for a Laceration After Repair Additional Instructions: You have required stitches today. Please read the following instructions so you know how to care for them: 1. Keep wound area dry for the first 24 hours. 2 May clean gently with mild soap and water, after 48 hours to prevent crusting over suture knots. 3. You may shower if your provider gives permission but do not take a bath until the skin is healed.. 4. Never leave a wet dressing or Band-Aid on your stitches as this allows bacteria to reach the area and may cause infection. Band-aids can cause the wound to sweat and not recommended to wear for long periods of time Watch for signs of infection: Increasing redness, tenderness or warmth around the suture site Unusual swelling around the site Appearance of pus around each suture or any red streaks Fever If you develop any of the above signs or symptoms of infection, Follow up with Family Physician immediately 5. Suture removal in __10-14__days 6. Return to [facility] or follow up with family doctor for removal. This can be done by any medical provider during regular hours on Thursday through Thursday, by appointment. Referrals: Stoney Montes MD [Primary Care Provider] - As needed Time of Disposition: 18:28 Medical Decision Making - Lamont Inquiry Pt receiving controlled substance: No Lamont was queried for this patient: No Vital Signs: 12/26/19 17:09 12/26/19 18:03 Temperature 98.9 F 98.9 F Temperature Source Oral Oral Pulse Rate [Right] 82 82 Respiratory Rate 20 20 Blood Pressure [Right Arm] 123/71 123/71 Blood Pressure Mean [Right Arm] 88 88 Blood Pressure Source [Right Arm] Automatic Cuff Blood Pressure Position [Right Arm] Sitting 02 Sat by Pulse Oximetry 100 100 Oxygen Delivery Method Room Air Orders (Tests/Meds): ED MEDICATIONS Discontinued Medications Generic Name Dose Route Start Last Admin Trade Name Freq PRN Reason Stop Dose Admin Tetanus/Reduced Diphtheria/Acell Pertussis 0.5 ml 12/26/19 17:25 12/26/19 17:35 Adacel Tdap 0.5ml Syringe IM 12/26/19 17:26 0.5 ml .ONCE ONE Administration - Reevaluation(s) Time: 18:31 Reevaluation #1: Patient given tetanus in UTC, bandage and finger splint applied [facility] [place] - General Stated complaint: AO @1645 Lac to L 2nd finger Time Seen by Provider: 12/26/19 18:00 Mode of Arrival: Ambulatory Source of Information: Patient Limitations: No Limitations Description of Symptoms (Recalled from Triage Doc. by RN): LACERATION TO KNUCKLE ON LEFT RING FINGER; PATIENT STATES SHE CUT HER FINGER WITH A KNIFE WHILE COOKING DINNER THIS AFTERNOON HEENT Symptoms (Recalled from RN notes): No Resp Symptoms (Recalled from RN notes): No Skin Symptoms (Recalled from RN notes): Yes MS Symptoms (Recalled from RN notes): No Functional Status (Recalled from RN notes): WNL - History of Present Illness Provider Complaint: Patient state that she was cutting open some meat at home when the knife slipped and cut her knuckle area on her left ring finger State that she immediately applied pressure to help with the bleeding and cleaned the area then seen that she had a cut there and thought it looked like it needed stiches so she came in - Related Data Home Medications Medication Instructions Recorded Confirmed multivitamin 1 cap PO DAILY 10/15/18 11/21/19 polyethylene glycoL 3350 17 g PO DAILY 06/03/19 11/21/19 [Polyethylene Glycol 3350] Cynthia
[2019-12-26 18:35] VITALS: BP 123/71; PULSE 82; RESP 20; TEMP 37.2; O2SAT 100
== END 2019-12-26 18:37 | disposition home or self-care (01) ==
PROVIDERS: Emergency Provider Nurse Practitioner; PCP Internal Medicine Adolescent Medicine
DX: S61.215A Laceration without foreign body of left ring finger without damage to nail, initial encounter (principal); W26.0XXA Contact with knife, initial encounter; Y92.009 Unspecified place in unspecified non-institutional (private) residence as the place of occurrence of the external cause; Z88.5 Allergy status to narcotic agent; Z90.49 Acquired absence of other specified parts of digestive tract; F17.210 Nicotine dependence, cigarettes, uncomplicated; Z23 Encounter for immunization
CPT/HCPCS: 12001; 90471; 90715; 99201

== ENCOUNTER → 2020-07-17 16:44 | Outpatient (CLI) | payer BC, SELFPAY ==
[2020-07-17 19:25] LABS: HCG Qualitative, Serum Negative (Negative)
[2020-07-19 11:17] LABS: Hep A Ab, IgM Negative (Negative); Hepatitis B Core Antibody IgM Negative (Negative); Hepatitis B Surface Antigen Negative (Negative)
[2020-07-19 13:50] LABS: HIV Screen 4th Generation wRfx Non Reactive (Non Reactive); HSV 2 IgG, Type Spec <0.91 index (0.00-0.90); Hepatitis C Antibody <0.1 s/co ratio (0.0-0.9); Rapid Plasma Reagin Ab Titer Non Reactive (NonRea<1:1)
[2020-07-20 08:59] LABS: Neisseria gonorrhoeae, NAA Negative (Negative)
== END ==
PROVIDERS: Visit Provider Nurse Practitioner Obstetrics & Gynecology
DX: Z72.51 High risk heterosexual behavior (principal)
CPT/HCPCS: 36415; 80074; 84703; 86592; 86695; 86703; 86790; 87491; 87591; G0432

== ENCOUNTER 2020-10-07 12:22 | Emergency (ER) | payer OTHER, SELFPAY ==
[2020-10-07 12:30] VITALS: BP 130/86; PULSE 89; RESP 17; TEMP 36.9; O2SAT 98; BMI 26.5
[2020-10-07 12:55] LABS: UTC Strep Screen (Rapid) Negative (Negative)
--- NOTE | 2020-10-07 13:14 | HMH.EDUTC ---
[facility] [place] Clinical Impression: Strep throat Disposition: Home, Self-Care Condition on Discharge: Good Instructions: DI for Strep Throat Additional Instructions: Start antibiotics today be sure to take it as ordered with the full length of time although you should start feeling better in 24-48 hours. Change toothbrush and toothpaste 24-48 hours after starting antibiotics Tylenol or Motrin as needed for fever or pain Encourage fluids, water, Gatorade, Powerade, try cold fluids, popsicles, ice cream will make it feel better You are contagious for 24 hours. Avoid kissing anyone, no eating or drinking after anyone. You are contagious. Follow-up the ER for new or worsening symptoms or no noticeable improvement over the next 24-48 hours. Follow-up with PCP this week. Prescriptions: Azithromycin [Zithromax 250mg tab] 250 mg PO DIRECTED #6 tab Transmission Status: Pending to [id number] Referrals: Stoney Montes MD [Primary Care Provider] - Forms: Work/School Release Time of Disposition: 13:20 Medical Decision Making - [place] Inquiry Pt receiving controlled substance: No Vital Signs: 10/07/20 12:30 Temperature 98.4 F Temperature Source Oral Pulse Rate [Right Brachial] 89 Respiratory Rate 17 Blood Pressure [Right Arm] 130/86 Blood Pressure Mean [Right Arm] 100 Blood Pressure Source [Right Arm] Automatic Cuff Blood Pressure Position [Right Arm] Sitting 02 Sat by Pulse Oximetry 98 Oxygen Delivery Method Room Air - Lab Data Lab Results 10/07/20 12:24: Strep Scn Rapid Clinic Negative Orders (Tests/Meds): ORDERS Category Date Time Status Strep Screen Confirmation Stat Micro 10/07/20 12:24 [place] [facility] [place] - General Chief complaint: Urgent [facility] Stated complaint: possible strep Time Seen by Provider: 10/07/20 13:14 Mode of Arrival: Ambulatory Source of Information: Patient Limitations: No Limitations Description of Symptoms (Recalled from Triage Doc. by RN): PATIENT C/O SORE THROAT X 3 DAYS HEENT Symptoms (Recalled from RN notes): Yes Resp Symptoms (Recalled from RN notes): No Skin Symptoms (Recalled from RN notes): No MS Symptoms (Recalled from RN notes): No Functional Status (Recalled from RN notes): WNL - History of Present Illness Provider Complaint: 29 yr old female presents for sore throat for 3 days and becoming worse - Related Data Home Medications Medication Instructions Recorded Confirmed multivitamin 1 cap PO DAILY 10/15/18 07/30/20 Previous Rx's Medication Instructions Recorded metronidazole 500 mg tablet 500 mg PO BID 7 Days #14 tab 07/17/20 Azithromycin [Zithromax 250mg 250 mg PO DIRECTED #6 tab 10/07/20 tab] Allergies Allergy/AdvReac Type Severity Reaction Status Date / Time amitriptyline Allergy UNKNOWN Verified 07/30/20 15:27 aspirin Allergy UNKNOWN Verified 07/30/20 15:27 morphine Allergy UNKNOWN Verified 07/30/20 15:27 pregabalin [From Lyrica] Allergy UNKNOWN Verified 07/30/20 15:27 tetracycline Allergy UNKNOWN Verified 07/30/20 15:27 - Worker's Comp Is this a Worker's Comp case?: No [facility] History - Hepatitis A Screen Drug use history?: No High risk sexual behaviors?: No History of sexually transmitted infection?: No Currently employed?: No Childcare worker?: No Do you have indoor plumbing?: Yes Do you have electricity?: Yes Attestation statement:: This patient has been screened for Hepatitis A risk factors. I have reviewed the patient's past medical history: Yes Medical History: Denies:: Cancer, Diabetes Mellitus Type 1, Diabetes Mellitus Type 2, Internal Pacemaker, MRSA Other Medical History: Reports: Other Comment: KIDNEY ISSUES - Laterality Cases: Bilateral: Other Other Surgeries: Yes: Appendectomy, Cholecystectomy, , Other. No: Pacemaker Amputation: No Fractures: No Comment: Laproscopy - Social History Smoking Status: Current every day smoker Tobacco Ty
[2020-10-07 13:18] VITALS: BP 130/86; PULSE 89; RESP 17; TEMP 36.9; O2SAT 98
== END 2020-10-07 13:20 | disposition home or self-care (01) ==
PROVIDERS: Emergency Provider Nurse Practitioner Family; PCP Internal Medicine Adolescent Medicine
DX: J02.0 Streptococcal pharyngitis (principal); Z88.5 Allergy status to narcotic agent; F17.210 Nicotine dependence, cigarettes, uncomplicated
CPT/HCPCS: 87880; 99202; G0463

== ENCOUNTER 2020-10-17 10:14 | Emergency (ER) | payer OTHER, SELFPAY ==
[2020-10-17 10:20] VITALS: BP 134/82; PULSE 89; RESP 18; TEMP 36.8; O2SAT 99; BMI 24.9
[2020-10-17 10:41] LABS: UTC Pregnancy Test, Urine Negative (Negative)
[2020-10-17 10:57] LABS: HCG Qualitative, Serum Negative (Negative)
--- NOTE | 2020-10-17 11:21 | HMH.EDUTC ---
[facility] [place]ression: Abdominal cramping, Abnormal uterine bleeding Disposition: Home, Self-Care Condition on Discharge: Good Instructions: DI for Abnormal Uterine Bleeding Additional Instructions: Follow up with your primary care physician. Follow up with Dr. Stafford. GO TO THE ER FOR ANY WORSENING SYMPTOMS OR CONCERNS Referrals: Stoney Montes MD [Primary Care Provider] - Forms: Work/School Release Time of Disposition: 11:32 Medical Decision Making - Medical Records Medical records reviewed: No: I reviewed the patient's medical records. - [place] Inquiry Pt receiving controlled substance: No Vital Signs: 10/17/20 10:20 10/17/20 11:33 Temperature 98.2 F 98.2 F Temperature Source Oral Pulse Rate 89 Pulse Rate [Right Brachial] 89 Respiratory Rate 18 18 Blood Pressure 134/82 Blood Pressure [Right Arm] 134/82 Blood Pressure Mean [Right Arm] 99 Blood Pressure Source [Right Arm] Automatic Cuff Blood Pressure Position [Right Arm] Sitting 02 Sat by Pulse Oximetry 99 Oxygen Delivery Method Room Air - Lab Data Lab Results 10/17/20 10:27: Tst Clinic Negative 10/17/20 10:30: Serum HCG, Qual Negative [facility] [place] - General Stated complaint: pos test on 10/14, cramping Time Seen by Provider: 10/17/20 10:25 Mode of Arrival: Ambulatory Source of Information: Patient Limitations: No Limitations Description of Symptoms (Recalled from Triage Doc. by RN): PATIENT C/O SPOTTING AND CRAMPING. REPORTS SHE HAD 1 POSITIVE AND 1 NEGATIVE TEST AT HOME. SHE IS DUE TO START HER PERIOD THIS WEEKEND HEENT Symptoms (Recalled from RN notes): No Resp Symptoms (Recalled from RN notes): No Skin Symptoms (Recalled from RN notes): No MS Symptoms (Recalled from RN notes): No Functional Status (Recalled from RN notes): WNL - History of Present Illness Provider Complaint: She is here with a chief complaint of having a positive test at home, then she began having some vaginal spotting. - Related Data Home Medications Medication Instructions Recorded Confirmed multivitamin 1 cap PO DAILY 10/15/18 07/30/20 Previous Rx's Medication Instructions Recorded metronidazole 500 mg tablet 500 mg PO BID 7 Days #14 tab 07/17/20 Azithromycin [Zithromax 250mg 250 mg PO DIRECTED #6 tab 10/07/20 tab] Allergies Allergy/AdvReac Type Severity Reaction Status Date / Time amitriptyline Allergy UNKNOWN Verified 07/30/20 15:27 aspirin Allergy UNKNOWN Verified 07/30/20 15:27 morphine Allergy UNKNOWN Verified 07/30/20 15:27 pregabalin [From Lyrica] Allergy UNKNOWN Verified 07/30/20 15:27 tetracycline Allergy UNKNOWN Verified 07/30/20 15:27 - Worker's Comp Is this a Worker's Comp case?: No [facility] History - Hepatitis A Screen Drug use history?: No High risk sexual behaviors?: No History of sexually transmitted infection?: No Currently employed?: No Childcare worker?: No Do you have indoor plumbing?: Yes Do you have electricity?: Yes Attestation statement:: This patient has been screened for Hepatitis A risk factors. I have reviewed the patient's past medical history: Yes Medical History: Denies:: Cancer, Diabetes Mellitus Type 1, Diabetes Mellitus Type 2, Internal Pacemaker, MRSA Other Medical History: Reports: Other Comment: KIDNEY ISSUES - Laterality Cases: Bilateral: Other Other Surgeries: Yes: Appendectomy, Cholecystectomy, , Other. No: Pacemaker Amputation: No Fractures: No Comment: Laproscopy - Social History Smoking Status: Current every day smoker Tobacco Type: cigarettes # Packs/Day (cigarettes): 1 #Yrs smoked (if former smoker): 15 Alcohol Intake: never Alcohol Intake Frequency:: holidays/special occasions only Substance Use Type: marijuana, crack/cocaine, other Occupational Status: other Housing: house Household Members: spouse Family Hx:: No significant family history ROS Obtained: Yes All systems revi
[2020-10-17 11:33] VITALS: BP 134/82; PULSE 89; RESP 18; TEMP 36.8; O2SAT 99
== END 2020-10-17 11:37 | disposition home or self-care (01) ==
PROVIDERS: Emergency Provider Nurse Practitioner Family; PCP Internal Medicine Adolescent Medicine
DX: N93.9 Abnormal uterine and vaginal bleeding, unspecified (principal); Z32.02 Encounter for pregnancy test, result negative; F17.210 Nicotine dependence, cigarettes, uncomplicated
CPT/HCPCS: 81025; 84703; 99202; G0463

== ENCOUNTER 2021-06-12 08:31 | Emergency (ER) | payer OTHER, SELFPAY ==
[2021-06-12 08:33] VITALS: BP 123/79; PULSE 80; RESP 17; TEMP 36.5; O2SAT 100; BMI 24.7
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
[2021-06-12 09:30] VITALS: BP 132/56; PULSE 74; O2SAT 98
--- NOTE | 2021-06-12 10:29 | PC.NURSE ---
Checked on Pt laying in supine position comfortably. She declines anything. Will continue to monitor.
[2021-06-12 11:51] VITALS: BP 118/74; PULSE 75; RESP 18; TEMP 36.9; O2SAT 98
== END 2021-06-12 11:51 | disposition home or self-care (01) ==
PROVIDERS: Emergency Provider Student in an Organized Health Care Education/Training Program; PCP Internal Medicine Adolescent Medicine
DX: S63.502A Unspecified sprain of left wrist, initial encounter (principal); F17.210 Nicotine dependence, cigarettes, uncomplicated; Z88.8 Allergy status to other drugs, medicaments and biological substances
CPT/HCPCS: 29125; 73110; 99282

== ENCOUNTER 2021-06-25 10:25 | Outpatient (RCR) | payer OTHER, SELFPAY | END 2021-06-25 11:47 | disposition home or self-care (01) | LOC: OT 10:25 | PROVIDERS: Visit Provider Orthopaedic Surgery | DX: M65.4 Radial styloid tenosynovitis [de Quervain] (principal); G56.03 Carpal tunnel syndrome, bilateral upper limbs | CPT/HCPCS: 97763 ==